=== PATIENT | female | born 1980 | race African-American/Black ===

== ENCOUNTER 2019-11-07 18:38 | Emergency (ER) | payer MEDICAID ==
[~2019-11-07] VITALS: Ht 165.1 cm; Wt 68.2 kg
[2019-11-07 20:02] LABS: BASO # 0.1 (0.0-0.2); BASO % 0.7 % (0.0-2.0); EOS # 0.1 (0.0-0.7); EOS % 0.4 % (0-4.0); GRAN # 10.4 (1.4-6.5); LYMPH # 2.2 (1.2-3.4); LYMPH % 15.7 % (20.0-51.0); MEAN CELL VOLUME 61 fl (80.0-100.0); MEAN CORPUSCULAR HGB CONC 27 g/dl (33.0-37.0); MONO # 1.1 (0.1-0.6); MONO % 7.7 % (1.7-9.3); PLATELET COUNT 216 K/mm3 (130-400); RED BLOOD COUNT 4.65 M/mm3 (4.10-5.30); REDCELL DISTRIBUTION WIDTH-CV 22.4 % (11.5-14.5)
[2019-11-07 20:03] LABS: HEMATOCRIT 28.3 % (37.0-47.0); HEMOGLOBIN 7.7 g/dl (12.5-16.0); MEAN CORPUSCULAR HEMOGLOBIN 17 pg (27.0-31.0)
[2019-11-07 20:05] LABS: INR 1.2 (0.8-3.0); PROTHROMBIN TIME 13.2 SECONDS (9.7-12.8)
[2019-11-07 20:14] LABS: ALBUMIN 4.5 gm/dL (3.5-5.0); BILIRUBIN,TOTAL 1.4 mg/dL (0.0-1.0); C-REACTIVE PROTEIN 1.5 mg/dL (0.0-0.9); CALCIUM 9.2 mg/dL (8.4-10.2); CREATININE, serum 0.57 (0.52-1.25); TOTAL PROTEIN 8.8 gm/dL (6.4-8.2)
[2019-11-07 20:21] LABS: COLLECTION METHOD CLEAN CATCH
[2019-11-07 20:24] LABS: TROPONIN-I 0.024 ng/mL (0.000-0.035)
[2019-11-07 20:27] LABS: POTASSIUM 2.8 mmol/L (3.4-5.0)
[2019-11-07 20:27] LABS: MUCOUS Present /lpf; PH 7 (5-8); SQUAMOUS EPITHELIAL 0-2 /hpf; URINE APPEARANCE Clear; URINE BACTERIA None Seen /hpf; URINE BILIRUBIN Negative (NEGATIVE); URINE BLOOD Negative (NEGATIVE); URINE COLOR Yellow; URINE GLUCOSE Negative (NEGATIVE); URINE KETONE Trace (NEGATIVE); URINE LEUKOCYTE ESTERASE Negative (NEGATIVE); URINE NITRATE Negative (NEGATIVE); URINE PROTEIN(semi-quant) Negative (NEGATIVE); URINE RBC 0-2 /hpf; URINE UROBILINOGEN Negative (NEGATIVE)
[2019-11-07 20:42] LABS: TSH w REFLEX 2.51 uIU/mL (0.465-4.680)
[2019-11-07 21:52] VITALS: TEMP 98.3
[2019-11-07 23:31] VITALS: BP 173/107; PULSE 103
== END 2019-11-07 23:40 | disposition short-term general hospital (02) ==
LOC: COL.ER 18:38
PROVIDERS: Physician Assistant
DX: I77.6 Arteritis, unspecified (principal); E87.6 Hypokalemia; D64.9 Anemia, unspecified; R41.82 Altered mental status, unspecified; F17.210 Nicotine dependence, cigarettes, uncomplicated
CPT/HCPCS: J2060; J3480; J7030; Q9967

== ENCOUNTER 2019-11-21 12:14 | Inpatient (IN) | payer MEDICAID ==
[~2019-11-21] VITALS: Ht 160 cm; Wt 64.4 kg
[2019-11-21] MEDS ORDERED: TYLENOL 325MG325 MG PO (12:47)
[2019-11-21] MEDS ORDERED: ASPIRIN 81M81 MG/TA2 PO (12:48)
[2019-11-21] MEDS ORDERED: GENTEAL MILD 1515 M1 OP (12:50)
[2019-11-21] MEDS ORDERED: SILACE150 MG/15 PO (12:51)
[2019-11-21] MEDS ORDERED: FERRO-TIME325 MG PO (12:54)
[2019-11-21] MEDS ORDERED: HEPARIN SOD5000 U/ML SQ (12:55)
[2019-11-21] MEDS ORDERED: NIMOTOP30 MG PO (12:57)
[2019-11-21] MEDS ORDERED: SENNA8.8 MG/5 M PO (12:58)
[2019-11-21] MEDS ORDERED: BRILINTA90 MG PO (12:59)
[2019-11-21] MEDS ORDERED: MIRENA52 MG IY (13:01)
[2019-11-21 14:37] VITALS: BP 148/101; PULSE 92; TEMP 99
[2019-11-21 15:43] VITALS: BP 134/96; PULSE 90; TEMP 98.4
--- NOTE | 2019-11-21 18:26 | NUR ---
Patient arrived to [facility] at 2:20 PM and was placed in room 337. Patient is aphasic so is unable to speak, but is able to nod head yes or no. Placed laminated direction sheet in room to help with patient staff communication. Patient had a large loose continent BM this evening, with an incontinent urine episode. Patient denies pain at this time. She is able to eat with her left hand, but does require help with getting lids off of items since right side is flaccid. Patient had an ensure upon arrival to the unit and ate all of her supper this evening. This nurse gave patient a bed bath prior to bed this evening and patient did help a little with getting shirt on as well as able to pull pants up and down with left hand. 5 Page and Family History was completed with the help of patient's . Patient currently resting in bed, call light in reach and bed alarm is set. Will continue to monitor.
--- NOTE | 2019-11-21 22:56 | NUR ---
PATIENT DOING WELL TONIGHT. ASSISTED TO BEDSIDE COMMODE WITH X1 ASSIST AND HAD MEDIUM LOOSE BM, WAS INCONTINENT OF URINE X1 EPISODE. TOOK SCHEDULED MEDICATIONS WITHOUT ISSUE. PATIENT HAS BEEN RESTING IN BED, NO FURTHER NEEDS AT THIS TIME. WILL CONTINUE TO MONITOR.
[2019-11-22 03:43] VITALS: BP 120/78; PULSE 71; TEMP 98.1
--- NOTE | 2019-11-22 08:00 | NUR ---
PATIENT SITTING UP IN BED THIS MORNING. PATIENT IS ALERT. WHEN READ HER NAME AND OFF HER NAME BAND SHE SHAKES HER HEAD YES. BOWEL SOUNDS ACTIVE ALL FOUR QUADRANTS. PATIENT TOLERATING DIET WITHOUT N/V. VSS. RIGHT-SIDED WEAKNESS NOTED. POSITIVE PEDAL PULSES EQUAL BILATERALLY. BOOT TO RIGHT FOOT. WHEN ASKED IF THE PATIENT HAS PAIN SHE POINTS TO 'NO' ON HER COMMUNICATION SHEET. CALL LIGHT WITHIN REACH. BED ALARM ON. NO NEEDS AT THIS TIME.
--- NOTE | 2019-11-22 15:18 | NUR ---
ANUP met with the patient for she is new to [facility]. However, due to her medical condition she cannot speak and only answer yes or no with a piece of paper with yes or no logos on it. Per nurse the patient can only move her head up and down and not side to side very well. SW asked the patient some yes and no questions. The patient did want a DPOA-HC form. Form provided. Due to the limited answers, ANUP got from the patient ANUP contacted the patient's Abel to complete initial intake. The patient lives in [place] with Abel and their three children. The patient also has a son Andrei Hernandez who lives in [place] near the home. The patient does not have any DME and is independent with ADLs. The patient does not have a PCP and receives medications from [facility] pharmacy in [place]. The patient does not have advanced directives in the EMR but Abel states that the patient would likely choose her son, Andrei to make medical decisions if needed. ANUP will continue to follow.
[2019-11-22 17:52] VITALS: BP 132/91; PULSE 98; TEMP 98.6
--- NOTE | 2019-11-22 18:45 | NUR ---
REPORT GIVEN TO TYLER ROJAS.
--- NOTE | 2019-11-22 19:15 | NUR ---
PATIENT RESTING IN BED DURING CHANGE OF SHIFT REPORT FROM DAY SHIFT NURSEZAINAB. BED ALARM ON.
--- NOTE | 2019-11-22 20:00 | NUR ---
OBSERVED DECREASED ROM/STRENGTH TO RUE D/T BRAIN INJURY AND DECREASED RLE STRENGTH D/T BRAIN INJURY. FOOT DROP BRACE TO RLE IN PLACE BOTH IN AND OUT OF BED. PATIENT CONTINUES TO BE NONVERBAL D/T BRAIN INJURY BUT ABLE TO COMMUNICATE WITH STAFF USING COMMUNICATION TOOLS. BED ALARM ON.
--- NOTE | 2019-11-23 02:44 | NUR ---
PATIENT CURRENTLY SLEEPING, UP TO BATHROOM WITH ASSISTANCE, CONTINUES WITH FOOT DROP BRACE TO RIGHT FOOT WHEN IN BED AND WITH AMBULATION PER PATIENT'S REQUEST FOR SUPPORT/COMFORT. OBSERVED RUE FLACCID, RUE ELEVATED WHEN IN BED. OBSERVED GAIT SLOW BUT ABLE TO BEHAVIORAL HEALTH DIRECTOR RLE CAREFULLY WITH GAIT BY PATIENT'S OWN MOVEMENT, NO DRAGGING OF RLE OBSERVED. OBSERVED SOME DECREASED RLE DUE TO BRAIN BLEED. PATIENT CONTINUES TO BE NONVERBAL DUE TO BRAIN BLEED BUT ABLE TO COMMUNICATE WITH STAFF USING COMMUNICATION SHEETS. BED ALARM ON.
[2019-11-23 05:45] VITALS: BP 108/72; PULSE 101; TEMP 98.4
--- NOTE | 2019-11-23 07:52 | NUR ---
PATIENT SLEEPING DURING CHANGE OF SHIFT REPORT GIVEN TO DAY SHIFT NURSETRENT. BED ALARM ON.
--- NOTE | 2019-11-23 09:34 | NUR ---
PT UP TO RECLINER FOR BREAKFAST. STOOL SOFTERNERS HELD R/T LG LOOSE STOOLS OVERNIGHT. PT DOWNSTAIRS FOR THERAPY. PT APPEARS TO BE TOLERATING WELL.
--- NOTE | 2019-11-23 13:11 | NUR ---
[facility] worker from the patient's insurance [facility] contacted SW. Ale is on the patient's case will assist with any discharge needs for the patient. Ale's phone #[phone].
[2019-11-23 17:00] VITALS: BP 149/99; PULSE 90; TEMP 98.9
--- NOTE | 2019-11-23 19:13 | NUR ---
REPORT TO CRYSTAL BETANCOURT
--- NOTE | 2019-11-23 19:30 | NUR ---
PATIENT RESTING IN BED DURING CHANGE OF SHIFT REPORT FROM DAY SHIFT NURSETRENT. BED ALARM ON. NO NEEDS REPORTED DURING REPORTED.
[2019-11-24 05:31] VITALS: BP 133/78; PULSE 88; TEMP 98.3
--- NOTE | 2019-11-24 08:22 | NUR ---
PATIENT SLEEPING IN BED DURING CHANGE OF SHIFT REPORT GIVEN TO DAY SHIFT NURSESCOTTY. BED ALARM ON. PATIENT AWAKEN WITH NAME CALLED AND GENTLE SHAKING TO LUE AND SAT UP IN CHAIR WITH ASSIST AND BREAKFAST MEAL SET UP FOR PATIENT TO EAT. NO OTHER NEEDS REPORTED, CHAIR ALARM TURN ON.
--- NOTE | 2019-11-24 10:27 | NUR ---
Patient currently working with OT at this time. This nurse found blood on patient's gown from heprin injection this morning. This nurse assisted patient with changing clothing this morning. Tolerated breakfast well. In a pleasent mood this morning.
[2019-11-24 17:43] VITALS: BP 137/93; PULSE 105; TEMP 98.1
--- NOTE | 2019-11-24 19:29 | NUR ---
Patient has been continent of urine this shift. She is a one assist with gait belt and everardo walker to the bathroom. Patient denied pain this shift. She required staff to cut up food and open containers due to right side flaccidness. This nurse received call from that he would bring an Ipad for patient to use so that patient can skype with family. This was received along with some more clothing from and Ipad hot metal charger. Patient currently resting in recliner, call light in reach and chair alarm set. Reported off to night nurse.
--- NOTE | 2019-11-24 19:30 | NUR ---
Patient up in chair during change of shift report from day shift nurseDiane. Chair alarm on.
--- NOTE | 2019-11-25 02:50 | NUR ---
Patient up to bathroom with assist, with no problems, using gait belt and hemiwalker with staff x1. Bed alarm on when back to bed.
[2019-11-25 05:33] VITALS: BP 121/87; PULSE 89; TEMP 98
--- NOTE | 2019-11-25 07:41 | NUR ---
Patient resting in bed during change of shift report given to day shift nurseDiane. Bed alarm on.
--- NOTE | 2019-11-25 10:48 | NUR ---
Patient resting in recliner, call light in reach and alarm is set. Patient ate all her breakfast this morning. Denies pain this morning. Will continue to monitor.
[2019-11-25 15:57] VITALS: BP 138/95; PULSE 92; TEMP 98.4
--- NOTE | 2019-11-25 18:50 | NUR ---
Patient was a one person assist with walking to the bathroom this shift. Patient had two continent bowel movements today. Patient required assistance with wiping, but was able to pull her pants up and down herself. Patient was able to put her sock on her left foot independently. She required mod assist with grooming and with putting her top on. Due to right side flaccidity. Patient currently resting in recliner, call light in reach and denies pain. Will continue to monitor.
[2019-11-26 03:59] VITALS: BP 140/91; PULSE 87; TEMP 97.5
--- NOTE | 2019-11-26 05:50 | NUR ---
PT HAS MINIMAL USE OF RIGHT UPPER EXTREMITY. PT CAN AMBULATE WITH GAIT BELT, QUAD CANE AND ASSIST OF ONE. PT DENIES PAIN. PT REPOSITIONS SELF IN BED.
--- NOTE | 2019-11-26 07:00 | NUR ---
Report received from TYLER Katz. Pt in bed resting, assisted to bathroom with SBA. Does well with quad cane and walker with arm wrapped in L gait belt. Resting in chair with chair alarm on, will continue to monitor.
[2019-11-26 08:02] LABS: BASO # 0.1 (0.0-0.2); BASO % 0.8 % (0.0-2.0); EOS # 0.1 (0.0-0.7); GRAN # 4.3 (1.4-6.5); GRAN % 65.3 % (42.2-75.2); LYMPH # 1.6 (1.2-3.4); MEAN CELL VOLUME 78 fl (80.0-100.0); MEAN CORPUSCULAR HGB CONC 27 g/dl (33.0-37.0); MONO # 0.4 (0.1-0.6); MONO % 6.6 % (1.7-9.3); PLATELET COUNT 308 K/mm3 (130-400); RED BLOOD COUNT 3.98 M/mm3 (4.10-5.30); REDCELL DISTRIBUTION WIDTH-CV 32.9 % (11.5-14.5)
[2019-11-26 08:19] LABS: ALBUMIN 3.9 gm/dL (3.5-5.0); BILIRUBIN,TOTAL 0.4 mg/dL (0.0-1.0); CALCIUM 9.7 mg/dL (8.4-10.2); CREATININE, serum 0.54 (0.52-1.25); MAGNESIUM 1.7 mg/dL (1.6-2.3); POTASSIUM 3.8 mmol/L (3.4-5.0); TOTAL PROTEIN 8.3 gm/dL (6.4-8.2)
[2019-11-26 08:54] LABS: HEMATOCRIT 31.1 % (37.0-47.0); HEMOGLOBIN 8.5 g/dl (12.5-16.0); MEAN CORPUSCULAR HEMOGLOBIN 21 pg (27.0-31.0)
--- NOTE | 2019-11-26 09:24 | NUR ---
Assessment charted. Pt taking PO well. Eats independently, able to do most things well but needs assistance with tasks requiring 2 arms. Denies needs or pain, will continue to monitor.
[2019-11-26 15:25] VITALS: BP 143/86; PULSE 88; TEMP 98.2
--- NOTE | 2019-11-26 17:57 | NUR ---
Pt has done well over shift. Resting in chair at side of bed on video call with family, denies needs, taking PO well. Will continue to monitor.
--- NOTE | 2019-11-26 21:00 | NUR ---
PT ALERT, APHASIC. NODS HEAD YES/NO APPROPRIATELY. TAKES HS MEDS WITHOUT PROBLEM. REPOSITIONS SELF IN BED. HAS NO INCONTINENCE. AMBULATES WITH GAIT BELT AND QUAD CANE AND ONE ASSIST. RT ARM FLACCID.
--- NOTE | 2019-11-27 03:30 | NUR ---
PT UP TO BATHROOM WITH ASSIST OF ONE AND USE OF GAIT BELT AND PARUL WALKER. DOES WELL. TAKES SCHEDULED MED WITHOUT PROBLEM. BACK TO BED.
[2019-11-27 05:20] VITALS: BP 118/77; PULSE 80; TEMP 98.4
--- NOTE | 2019-11-27 09:25 | NUR ---
Patient is alert. not able to assess orietation because patient is nonverbal. use hand to describe needs. Node yes/no to questions. denies any pain. patient resting on a chair. call light beside patient.
--- NOTE | 2019-11-27 13:07 | NUR ---
Admission QIM scores were reviewed by the team. Code of 4 chosen for toileting hygiene was determined by team discussion to be the most usual performance before interventions for this patient during the assessment period. Code of 2 chosen for toilet transfers was determined by team discussion to be the most usual performance for this patient during the assessment period. Code of 2 chosen for putting on/taking off footwear was determined by team discussion to be the most usual performance for this patient during the assessment period. Code of 2 chosen for chair/bed to chair transfers was determined by team discussion to be the most usual performance for this patient during the assessment period. Code of 2 chosen for walk 10 feet was determined by team discussion to be the most usual performance for this patient during the assessment period.--Brenda Small, PD
[2019-11-27 18:10] VITALS: BP 132/72; PULSE 84; TEMP 99.2
--- NOTE | 2019-11-27 19:30 | NUR ---
Patient up in chair during change of shift report from day shift nurseRenata. Chair alarm on.
--- NOTE | 2019-11-27 20:00 | NUR ---
WEAKNESS TO RUE D/T BRAIN BLEED. PATIENT UP WITH HELP X1 ASST W/GB AND WW. PATIENT STILL NOT ABLE TO VERBALIZE ANSWERS WHEN ASKED, ABLE TO ANSWER YES QUESTIONS W/O PROBLEMS, STILL HAS SOME PROBLEMS WITH ANSWER NO QUESTIONS WITHOUT MORE CUES FROM STAFF TO DETERMINE PATIENT'S WANTS AT THE TIME. BED ALARM OR CHAIR ALARM WHEN IN USE.
--- NOTE | 2019-11-28 03:06 | NUR ---
Patient sleeping, does not awaken when door to room is opened by staff. Breathing observed as nonlabored and even. Bed alarm on.
[2019-11-28 05:46] VITALS: BP 130/82; PULSE 71; TEMP 98
--- NOTE | 2019-11-28 07:25 | NUR ---
PATIENT SLEEPING IN BED DURING CHANGE OF SHIFT REPORT GIVEN TO DAY SHIFT NURSEANNAMARIA. BED ALARM ON.
--- NOTE | 2019-11-28 08:00 | NUR ---
Patient sitting up in recliner. Alert and oriented. Patient able to answer yes and no questions. Right sided weakness noted. Denies pain at this time. Denies further needs at this time.
--- NOTE | 2019-11-28 13:15 | NUR ---
Assisted patient to restroom, x1 assist with cane . Steady gait
--- NOTE | 2019-11-28 15:18 | NUR ---
Director Of Strategic Sourcing met with patient to review and provide copy of team conference notes. ANUP also advised that tentative discharge date is 12/07/19. Patient nodded her head. ANUP also advised patient a family meeting with Abel would be scheduled either tomorrow or Tuesday. Patient again nodded. ANUP contacted Abel to provide update and schedule family meeting for tomorrow at 1300. Abel plans to attend in person. ANUP reviewed updated visitor guidelines with Abel who advised he is looking forward to seeing patient. ANUP notified Brenda ESQUIVEL Director of date/time for family meeting. ANUP to continue to follow.
[2019-11-28 18:22] VITALS: BP 136/89; PULSE 90; TEMP 98.5
--- NOTE | 2019-11-28 18:49 | NUR ---
Patient has done well throughout the day. Ambulating well with cane. Denies further needs at this time. Will report off to maintenance technician 2nd shift.
--- NOTE | 2019-11-28 18:50 | NUR ---
PATIENT SITTING UP IN CHAIR DURING CHANGE OF SHIFT REPORT FROM DAY SHIFT NURSEANNAMARIA. BED ALARM ON.
--- NOTE | 2019-11-28 20:00 | NUR ---
DECREASED ROM/STRENGTH TO RUE AND RLE D/T BRAIN BLEED. PATIENT WEARING PARFO BOOT WHEN IN BED AND LIKE TO WEAR BOOT WHEN WALKING FOR STABILITY PER PATIENT REQUEST. ABLE TO MAKE 1 SYLLABLE SOUND TODAY, YESTERDAY PATIENT UNABLE TO VOCALIZE. STILL COMMUNICATES WITH POINTING, ANSWERS YES/NO QUESTIONS WITH MORE DIFFICULTY WITH NO ANSWERS AT TIME. DENIES ANY PAIN. UP IN CHAIR, CHAIR ALARM ON.
--- NOTE | 2019-11-29 01:00 | NUR ---
PATIENT SLEEPING, DOES NOT AWAKEN WHEN DOOR TO ROOM IS OPENED BY STAFF. OBSERVED BREATHING NONLABORED AND EVEN. BED ALARM ON.
--- NOTE | 2019-11-29 01:00 | NUR ---
PATIENT SLEEPING, DOES NOT AWAKEN WHEN ROOM ENTERED BY STAFF, OBSERVED BREATHING NONLABORED AND EVEN. BED ALARM ON. HERNÁNDEZ CATH IN PLACE AND DRAINING.
[2019-11-29 05:17] VITALS: BP 133/66; PULSE 98; TEMP 97.9
--- NOTE | 2019-11-29 07:41 | NUR ---
PATIENT TAKEN TO BATHROOM THEN PUT UP IN CHAIR DURING CHANGE OF SHIFT REPORT GIVEN TO DAY SHIFT NURSESCOTTY. CHAIR ALARM ON.
--- NOTE | 2019-11-29 14:24 | NUR ---
Cabinet Mounter spoke with patient's Abel who advised he thought family meeting would be on Tuesday. SW contacted Brenda IPR Director and rescheduled meeting for tomorrow, Tuesday11/30/19 @1300. ANUP to continue to follow.
--- NOTE | 2019-11-29 14:58 | NUR ---
Patient was a touch assist with walking to the toilet using a cane and gait belt. [facility]. She attended all therapies and when toileting is able to do everything herself with only set up.
[2019-11-29 17:26] VITALS: BP 152/97; PULSE 78; TEMP 97.8
--- NOTE | 2019-11-29 19:43 | NUR ---
PATIENT UP IN CHAIR, SPOUSE VISITING WITH PATIENT DURING CHANGE OF SHIFT REPORT FROM DAY SHIFT NURSESCOTTY. CHAIR ALARM ON.
--- NOTE | 2019-11-29 20:50 | NUR ---
DECREASED ROM/STRENGTH TO RUE D/T BRAIN INJURY/BLEED, ABLE TO VOCALIZE "O" AND "UM" SOUNDS CURRENTLY, USING NODDING/SHAKING OF HEAD TO YES OR NO QUESTIONS OR PATIENT POINTS TO HER ITEMS/AREAS OF REQUEST, DOES NOT USE PICTURE SHEET MUCH TODAY. BED ALARM ON WHEN IN BED. DENIES PAIN OR NEED FOR PAIN MEDS AT THIS TIME.
--- NOTE | 2019-11-30 02:36 | NUR ---
PATIENT UP TO BATHROOM WITH ASST WITH NO PROBLEMS USING CANE AND HAVING GAIT BELT IN PLACE. AMBULATING WITH PARFO BOOT TO RIGHT FOOT PER PATIENT REQUEST. NO OTHER NEEDS REPORTED WHEN PUT BACK TO BED. BED ALARM IN PLACE.
[2019-11-30 05:46] VITALS: BP 139/94; PULSE 70; TEMP 97.5
--- NOTE | 2019-11-30 07:07 | NUR ---
PATIENT SLEEPING IN BED DURING CHANGE OF SHIFT REPORT GIVEN TO DAY SHIFT NURSESCOTTY. BED ALARM ON.
--- NOTE | 2019-11-30 10:04 | NUR ---
Patient is still non verbal with communcation, but does try to use pointing and actions to help with getting staff to understand her. Patient continues to practice her speaking after ST has worked with her through the day using computer devices. Patient's visited her yesterday after work. She tolerated breakfast well this morning. Denies pain. Will continue to monitor.
--- NOTE | 2019-11-30 11:59 | NUR ---
Reported off to Milena/TYLER.
--- NOTE | 2019-11-30 15:18 | NUR ---
Catapult And Arresting Gear Officer participated in family/patient meeting which included patient's Abel, IPR Director Brenda, and PT/OT/ST. Brenda opened the meeting by explaining it's purpose then PT/OT/ST reviewed patient's progress and answered questions from Abel. Recommendation upon discharge is for outpatient therapy and patient is in agreement. ANUP will follow up with patient on outpatient options. Following meeting, Abel inquired about applying for social security disability. ANUP consulted Nay, Financial Counselor who will follow up with Abel to complete social security disability application. ANUP also contacted Taylor at [facility] on Aging to put in a referral to assess for TBI waiver eligibility. Taylor advised she will follow up with ANUP and bAel on scheduling assessment which will be done either by phone or zoom. ANUP provided update to patient and Abel. ANUP to continue to follow.
[2019-11-30 16:18] VITALS: BP 137/87; PULSE 86; TEMP 98.8
--- NOTE | 2019-11-30 18:56 | NUR ---
Patient has done well througout the afternoon. Denies further needs at this time. Will report off to crop farmers.
--- NOTE | 2019-11-30 19:06 | NUR ---
Report received from TYLER Weaver. Currently skyping with family. Meg states [address] was given, but the computer won't let her document it. Patient denies any needs. Will monitor.
--- NOTE | 2019-12-01 05:27 | NUR ---
Patient has rested well throughout the night. Denies pain. Patient able to communicate with thumbs up, and shaking her head to yes/no questions. Patient ambulates with stand-by assist with her cane. Extremities on right side noted to be flaccid. Brace to left foot/ankle intact. Patient takes medications whole with liquid. Patient on heparin for VTE. Patient utilizes call light appropriately. Will continue to monitor.
[2019-12-01 06:15] VITALS: BP 126/81; PULSE 81; TEMP 98.7
--- NOTE | 2019-12-01 08:00 | NUR ---
Assessment complete. Patient A&Ox3. VSS. Patient sitting up at the edge of bed eating dinner. Eating independently. Patient asked nurse for assistance with getting a shirt out of the closet, patient was able to put on the shirt without assistance. Denies pain and discomfort. No further needs expressed from patient. Call light within reach
[2019-12-01 17:08] VITALS: BP 138/89; PULSE 83; TEMP 98.8
--- NOTE | 2019-12-01 17:40 | NUR ---
Patient had a great day. came to visit with patient and stayed for several hours. VSS. Denies pain and discomfort. Has been calling for assistance with a standby assist. Has been working on speech exercises. No further needs expressed from patient. Call light within reach. chair alarm on
--- NOTE | 2019-12-02 05:13 | NUR ---
Patient has rested well throughout the night. Continues to deny pain. Ambulates with stand-by assist from staff. Utilizes can for ambulation. With ambulation patient utilizes brace for right foot/ankle. Patient able to put this one and take this off independently. Patient able to complete taking clothes on and off and pericare independently. Patient takes medications whole with water with no difficulty. Answers yes/no questions with nods and utilizing thumbs up/down. Will continue to monitor patient.
[2019-12-02 06:00] VITALS: BP 121/75; PULSE 71; TEMP 97.9
[2019-12-02 17:22] VITALS: BP 136/99; PULSE 85; TEMP 98
--- NOTE | 2019-12-02 19:00 | NUR ---
PATIENT HAD A GOOD DAY. PATIENT DENIED PAIN THROUGHOUT THE SHIFT. PATIENT UTILIZES THE CALL LIGHT FOR ASSISTANCE TO THE BATHROOM. PATIENT PRACTICED SPEECH EXERCISES AND VIDEO CHAT WITH FAMILY. PATIENT UP IN THE CHAIR THROUGHOUT THE DAY.
--- NOTE | 2019-12-03 03:05 | NUR ---
Patient has rested well throughout the night. Continues to be flaccid to right side. Wears boot to right foot/ankle. Patient independent with putting this on and off. Patient continues to be aphasic and nods yes/no to questions. Able to make needs known by pointing as well. Utilizes cane for ambulation to the restroom. Noted to be continent of urine. Gait noted to be steady. Denies pain. Patient takes medications whole with water. to see patient this evening for a few minutes. Patient denies any other needs. Will continue to monitor.
[2019-12-03 06:02] VITALS: BP 121/76; PULSE 78; TEMP 98.3
--- NOTE | 2019-12-03 16:26 | NUR ---
Street Photographer was contacted by patient's , Abel who advised Myranda, Cost Controller at the [facility] Agency on Aging is requesting information. SW contacted Myranda at [phone] and left a message. SW followed up with patient about OP PT/OT/ST. SW advised that [facility] could provide all three therapies and patient is agreeable to this. SW will follow up on scheduling appointments.
--- NOTE | 2019-12-03 17:38 | NUR ---
Patient resting in bedside recliner at this time. Patient is alert and oriented but remains aphasic. Patient is able to communicate needs with sounds and gestures and has denied pain today. Patient up to bathroom several times with SBA and use of cane and gait belt, however no physical assistance or cues were needed. Patient is eating and drinking well and denies further needs, call light within reach.
[2019-12-03 17:55] VITALS: BP 138/86; PULSE 85; TEMP 98.7
--- NOTE | 2019-12-03 19:35 | NUR ---
PATIENT SITTING ON SIDE OF BED DURING CHANGE OF SHIFT REPORT FROM DAY SHIFT NURSEYESY. BED ALARM ON. PATIENT ON ELECTRONIC DEVICE COMMUNICATING WITH FAMILY OR FRIENDS. DENIES ANY NEEDS AT TIME OF REPORT. CONTINUED RUE WEAKNESS DUE TO BRAIN INJURY WITH SOME RLE WEAKNESS WELL DUE TO DX. HAND RAILROAD CAR REPAIRMAN NOT EQUAL WITH R MARBLE INSTALLER ABSENT COMPARED TO L MARBLE INSTALLER. RUE FLACCID STILL.
--- NOTE | 2019-12-04 00:16 | NUR ---
PATIENT SLEEPING, DOES NOT AWAKEN WHEN ROOM ENTERED BY STAFF, OBSERVED BREATHING NONLABORED AND EVEN. BED ALARM ON.
--- NOTE | 2019-12-04 02:46 | NUR ---
PATIENT SLEEPING, DOES NOT AWAKEN WHEN ROOM ENTERED BY STAFF, BREATHING OBSERVED NONLABORED AND EVEN. BED ALARM ON.
[2019-12-04 04:37] VITALS: BP 132/87; PULSE 77; TEMP 97.7
--- NOTE | 2019-12-04 07:20 | NUR ---
PATIENT SLEEPING, DOES NOT AWAKEN WHEN ROOM ENTERED BY STAFF, DURING CHANGE OF SHIFT REPORT GIVEN TO DAY SHIFT NURSESCOTTY. BED ALARM ON.
--- NOTE | 2019-12-04 12:57 | NUR ---
Patient attended all therapies this morning, denies any pain. Currently resting in recliner, call light in reach and alarm is set. Denies questions at this time.
--- NOTE | 2019-12-04 15:36 | NUR ---
Patient received some information on primary care physicians and has decided to take more time to choose one. Patient spent approx. 20 minutes with this nurse trying to communicate, but due to her aphasia was unable to make her specific needs known. She decided to just not worry about it at this time. Patient's will be stopping by to see her later this evening.
--- NOTE | 2019-12-04 16:03 | NUR ---
Damage Adjuster contacted [facility] and scheduled patient's outpatient therapy appointments. PT/OT appointment will be Tuesday12/10/[address] will be Tuesday12/11/19 at 1300. ANUP provided dates, times, and locations of appointments to RNArely and to patient. ANUP contacted patient's , Abel to provide update. ANUP advised Abel that a new patient packet will need to be completed prior to therapy appointments. Abel asked that SW leave packet in patient's room. ANUP provided. SW also left a list of primary care providers with patient as she does not have one at this time. Patient indicated she prefers to have a primary care physician [place], so SW left a list of [facility] providers. ANUP contacted Myranda at the [facility] Agency on Aging who requested clinical records to process referral for TBI waiver. ANUP faxed H&P, progress notes, and therapy notes to fax #[phone]. ANUP to continue to follow.
[2019-12-04 16:21] VITALS: BP 128/95; PULSE 74; TEMP 98.5
--- NOTE | 2019-12-04 19:30 | NUR ---
PATIENT UP IN CHAIR DURING CHANGE OF SHIFT REPORT FROM DAY SHIFT NURSESCOTTY VISITING WITH SPOUSE. PATIENT UP INDEPENDENTLY IN ROOM WITH NO DIFFICULTIES OR CONCERNS/COMPLAINTS.
--- NOTE | 2019-12-04 19:56 | NUR ---
GAVE REPORT TO NIGHT NURSE
--- NOTE | 2019-12-05 | NUR ---
PATIENT SLEEPING, BREATHING OBSERVED EVEN AND NONLABORED. DOES NOT AWAKEN WHEN ROOM ENTERED BY STAFF. PATIENT UP INDEPENDENTLY IN ROOM WHEN AWAKE WITH NO PROBLEMS OR CONCERNS.
[2019-12-05 04:02] VITALS: BP 128/92; PULSE 74; TEMP 97.8
--- NOTE | 2019-12-05 07:38 | NUR ---
PATIENT SITTING ON SIDE OF BED DURING CHANGE OF SHIFT REPORT GIVEN TO DAY SHIFT NURSESCOTTY. PATIENT UP INDEPENDENTLY IN ROOM WITH NO PROBLEMS OR CONCERNS.
--- NOTE | 2019-12-05 15:06 | NUR ---
Call placed to [facility] to check on follow up appointment with neuro. Patient has an appointment scheduled with Dr. Brayan Saavedra, Nerology for 12/28/19 at 12:[address] PM[address] [place] [id number], [facility], [address]. It will be okay to have one person accompany patient to that visit.
[2019-12-05 16:53] VITALS: BP 143/85; PULSE 81; TEMP 98.7
--- NOTE | 2019-12-05 16:58 | NUR ---
Shipyard Helper spoke with patient's , Abel who advised they had a video conference with Myranda at the [facility] Agency on Aging today. Patient has not made a choice on primary care at this time. SW will follow up tomorrow.
--- NOTE | 2019-12-05 19:55 | NUR ---
Patient will meet with SW tomorrow to discuss who she will choose for a PCP so that follow up can be made. Patient is independent in her room and using call light appropriatly. She is able to point to yes or no, and understand when someone speaks with her. She is unable to voice her specific needs verbally, with reporting that today he was unable to understand what she was trying to communicate to him. There was a definate sign of frustration, but asked SW to talk with patient's and about future options to help with these concerns. F/U Neuro appointment has been made. Reported off to night nurse.
--- NOTE | 2019-12-05 20:21 | NUR ---
R HAND CRYSTAL FLAT GRINDER ABSENT/RUE FLACCID DUE TO BRAIN INJURY, OBSERVED SOME DECREASE ROM/STRENGTH TO RLE BUT ABLE TO AMBULATE WITH BOOT TO RFOOT ON AND USE OF CANE INDEPENDENTLY IN ROOM WITH NO PROBLEMS OR CONCERNS. PATIENT ONLY ABLE TO MAKE 1 SINGULAR VOCALIZATION AT THIS TIME, MOSTLY USING GESTURING WHEN COMMUNICATING WITH STAFF. DISMISSAL PLANS ARE SET FOR TUESDAY, PATIENT AT THIS TIME WITH NO OTHER NEEDS REPORTED.
--- NOTE | 2019-12-06 00:17 | NUR ---
PATIENT SLEEPING, DOES NOT AWAKEN WHEN DOOR TO ROOM IS OPENED BY STAFF. OBSERVED BREATHING NONLABORED AND EVEN. UP INDEPENDENTLY IN ROOM WHEN AWAKE WITH NO REPORTED CONCERNS/COMPLAINTS OR PROBLEMS.
[2019-12-06 04:26] VITALS: BP 138/95; PULSE 77; TEMP 98.6
--- NOTE | 2019-12-06 07:21 | NUR ---
PATIENT RESTING IN BED DURING CHANGE OF SHIFT REPORT GIVEN TO DAY SHIFT NURSEZAINAB. PATIENT UP INDEPENDENTLY WITH NO PROBLEMS OR CONCERNS.
--- NOTE | 2019-12-06 15:19 | NUR ---
Language Therapist collaborated with TYLER Garcia who advised patient selected Dr. Nancy Holliday for primary care. ANUP contacted Dr. Holliday's office and scheduled new patient appointment for 02/25/20 @ 1245. New intake phone call with RN will be on 01/14/20 @ 1100. ANUP provided Abel's phone number, . ANUP was advised that Dr. Holliday's RN will follow up with ANUP to hopefully schedule a hospital follow up appointment prior to patient's february appointment. ANUP provided these appointments to patient, Abel, and RN Radha. ANUP spoke with Abel who would like to have order for cane sent to [facility]. ANUP will send signed order and referral tomorrow so cane can be delivered prior to discharge. ANUP provided this update to patient who is in agreement with this plan. ANUP spoke with SANCHO Whitmore at the [facility] who advised patient is eligible for the TBI waiver and should have a Manager Front through [facility] to provide additional assistance and resources. ANUP to continue to follow.
[2019-12-06 17:22] VITALS: BP 152/99; PULSE 82; TEMP 98
--- NOTE | 2019-12-06 19:00 | NUR ---
PATIENT DID WELL WITH THERAPIES TODAY. PATIENT HAS DENIED PAIN THROUGHOUT THE SHIFT. PATIENT MOVES ABOUT INDEPENDENTLY IN HER ROOM. PATIENT PRACTICING SPEECH LESSONS AND VIDEO CHATTING WITH HER FAMILY THIS EVENING.
--- NOTE | 2019-12-06 19:36 | NUR ---
REPORT GIVEN TO TYLER KOHLER.
--- NOTE | 2019-12-06 19:55 | NUR ---
Received report from TYLER Garcia. Pt has been communicating with her family. Pt has her call light within reach and has been independent in her room.
[2019-12-07 05:56] VITALS: BP 120/84; PULSE 76; TEMP 98.5
--- NOTE | 2019-12-07 07:29 | NUR ---
Reported off to YTLER Garcia. Pt is currently sleeping in bed. Pt has ambulated to the bathroom this morning right before I did vitals. Pt has her call light within reach.
[2019-12-07] MEDS ORDERED: FERROUS SU325 MG/TAB PO (10:30)
[2019-12-07] MEDS ORDERED: BRILINTA90 MG PO (10:31)
--- NOTE | 2019-12-07 14:40 | NUR ---
DISCHARGE INSTRUCTIONS REVIEWED WITH PATIENT. PATIENT PERSONAL BELONGINGS GATHERED. WAITING FOR RIDE TO ARRIVE FOR DISCHARGE. PATIENT DENIES ANY NEEDS AT THIS TIME.
--- NOTE | 2019-12-07 15:50 | NUR ---
PATIENT TAKEN TO PERSONAL VEHICLE BY IPR STAFF. PATIENT DISCHARGED.
--- NOTE | 2019-12-07 16:17 | NUR ---
Research Computing Specialist faxed order for cane to [facility] who will deliver cane to patient prior to discharge today. SW also faxed discharge orders to [facility] for outpatient PT/OT/ST. No additional needs at this time.
--- NOTE | 2019-12-07 16:23 | NUR ---
Following discharge, Decator Operator received a call from Dr. Holliday's office advising they could get patient in on 12/27/19 for a hospital follow up, sooner than her new patient appointment. Appointment would be 12/27/19 at 1115. SW contacted patient's , Abel and provided appointment date and time.
--- NOTE | 2019-12-08 17:22 | NUR ---
Patient's son Michael called to get an update on all of patient's upcoming appointments. He said that Abel the had only communicated one date to him and he wanted to make sure that his mom didn't miss any of her appointments.
== END 2019-12-07 15:50 | disposition home or self-care (01) | DRG 57 ==
PROVIDERS: ADMIT Internal Medicine
DX: I69.851 Hemiplegia and hemiparesis following other cerebrovascular disease affecting right dominant side (principal); E46 Unspecified protein-calorie malnutrition; I69.820 Aphasia following other cerebrovascular disease; D64.9 Anemia, unspecified; Z68.24 Body mass index [BMI] 24.0-24.9, adult; I10 Essential (primary) hypertension; N92.0 Excessive and frequent menstruation with regular cycle; F17.210 Nicotine dependence, cigarettes, uncomplicated; Z79.82 Long term (current) use of aspirin
CPT/HCPCS: 99222-AI; 99231-AI; 99232-AI; 99239; J1644